=== PATIENT | male | born 1945 | race African-American/Black ===

== ENCOUNTER 2019-10-26 07:47 | Emergency (ER) | payer MEDICARE ==
[~2019-10-26] VITALS: Ht 180.3 cm; Wt 56.8 kg
[2019-10-26 07:52] VITALS: Ht 180.3 cm; Wt 56.8 kg
[2019-10-26] MEDS ORDERED: STERAPRED DS 1010 MG PO (09:03)
[2019-10-26 09:23] VITALS: BP 149/86
== END 2019-10-26 09:23 | disposition home or self-care (01) ==
LOC: D.ER 07:47
DX: G56.02 Carpal tunnel syndrome, left upper limb (principal)

== ENCOUNTER 2020-01-11 08:11 | Emergency (ER) | payer MEDICARE ==
[~2020-01-11] VITALS: Ht 180.3 cm; Wt 79.5 kg
[~2020-01-11 08:11] MED LIST: STERAPRED DS 1010 MG PO
[2020-01-11 08:16] VITALS: Ht 180.3 cm; Wt 79.5 kg
[2020-01-11 08:43] LABS: BACTERIA FEW /hpf (NEGATIVE); EPITHELIAL CELLS 0-5 /hpf (0-5); RED CELLS - URINE >50 /hpf (0-5)
[2020-01-11 08:52] LABS: BASOPHILS 0.2 % (0-2); EOSINOPHILS 1.1 % (0-7); HEMOGLOBIN 10.8 g/dL (13.5-17.5); IMMATURE GRANULOCYTES 0.2 % (0-5); LYMPHOCYTES 26.8 % (15-50); MCH 27.9 pg (26.0-34.0); MCHC 32.7 g/dL (31.0-37.0); MCV 85.3 fL (80.0-100.0); MEAN PLATELET VOLUME 9.5 fL (7.4-10.4); MONOCYTES 10.8 % (2-11); NEUTROPHILS 60.9 % (40-80); PLATELET COUNT 267 10x3/uL (130-400); RBC 3.87 10x6/uL (4.20-6.10); RDW 16.1 % (11.5-14.5); WBC 5.4 10x3/uL (4.8-10.8)
[2020-01-11 09:04] LABS: CALC OSMOLALITY 277 mosm/kg (275-300); CALCIUM 9.1 mg/dL (8.5-10.1); CARBON DIOXIDE 25.1 mmol/L (21.0-32.0); CHLORIDE - SERUM 105 mmol/L (98-107); GLUCOSE 124 mg/dL (74-106); POTASSIUM - SERUM 3.8 mmol/L (3.5-5.1); SODIUM 138 mmol/L (136-145); UREA NITROGEN 15 mg/dL (7-18); eGFR NON AFRICAN AMERICAN 78 mL/min (90-120)
[2020-01-11 09:09] LABS: ALBUMIN 3.1 g/dL (3.4-5.0); ALKALINE PHOSPHATASE 79 U/L (30-120); ALT (SGPT) 15 U/L (10-68); BILIRUBIN - TOTAL 0.35 mg/dL (0.2-1.3); PROTEIN - SERUM 7.6 g/dL (6.4-8.2)
[2020-01-11] MEDS ORDERED: MACROBID100 MG PO (09:51)
[2020-01-11] MEDS ORDERED: FLOMAX0.4 MG PO (09:51)
[2020-01-11 10:14] VITALS: BP 118/76
== END 2020-01-11 10:14 | disposition home or self-care (01) ==
LOC: D.ER 08:11
PROVIDERS: Family Medicine
DX: R33.9 Retention of urine, unspecified (principal); R31.9 Hematuria, unspecified

== ENCOUNTER 2020-01-12 20:07 | Emergency (ER) | payer MEDICARE ==
[~2020-01-12] VITALS: Ht 180.3 cm; Wt 59.1 kg
[~2020-01-12 20:07] MED LIST changes: +FLOMAX0.4 MG PO; +MACROBID100 MG PO
[2020-01-12 20:16] VITALS: Ht 180.3 cm; Wt 59.1 kg
[2020-01-12 21:57] LABS: BILIRUBIN NEGATIVE (NEGATIVE); GLUCOSE NEGATIVE (NEGATIVE); KETONE NEGATIVE (NEGATIVE); NITRITE NEGATIVE (NEGATIVE); UROBILINOGEN NORMAL (NORMAL)
[2020-01-12 21:58] LABS: BACTERIA MANY /hpf (NEGATIVE); RED CELLS - URINE >50 /hpf (0-5); WHITE CELLS - URINE 0-5 /hpf (NEGATIVE)
[2020-01-12 22:46] VITALS: BP 128/70
== END 2020-01-12 22:59 | disposition home or self-care (01) ==
LOC: D.ER 20:07
PROVIDERS: Family Medicine
DX: N40.1 Benign prostatic hyperplasia with lower urinary tract symptoms (principal); R33.8 Other retention of urine

== ENCOUNTER → 2020-01-26 10:27 | Outpatient (CLI) | payer MEDICARE ==
[2020-01-12 20:16] VITALS: BMI 18.1
== END | disposition home or self-care (01) ==
LOC: D.LAB 10:27
PROVIDERS: ATTEND Urology
DX: N40.0 Benign prostatic hyperplasia without lower urinary tract symptoms (principal)

== ENCOUNTER → 2020-02-05 07:59 | Outpatient (CLI) | payer MEDICARE ==
[2020-01-12 20:16] VITALS: BMI 18.1
== END | disposition home or self-care (01) ==
LOC: D.CT 07:59 → EDBD 09:00
PROVIDERS: ATTEND Urology
DX: R31.0 Gross hematuria (principal)

== ENCOUNTER 2020-03-02 11:25 | Emergency (ER) | payer MEDICARE ==
[~2020-03-02] VITALS: Ht 180.3 cm; Wt 63.6 kg
[2020-03-02 11:36] VITALS: Ht 180.3 cm; Wt 63.6 kg
[2020-03-02 12:17] LABS: ANION GAP 16.6 mmol/L (8-16); CALCIUM 9.2 mg/dL (8.5-10.1); CARBON DIOXIDE 24.5 mmol/L (21.0-32.0); CREATININE - SERUM 1.3 mg/dL (0.6-1.3); POTASSIUM - SERUM 4.1 mmol/L (3.5-5.1)
[2020-03-02 12:24] LABS: BASOPHILS 0.2 % (0-2); EOSINOPHILS 0.6 % (0-7); HEMATOCRIT 29.9 % (42.0-54.0); HEMOGLOBIN 8.9 g/dL (13.5-17.5); IMMATURE GRANULOCYTES 0.3 % (0-5); LYMPHOCYTES 13.2 % (15-50); MCH 24.1 pg (26.0-34.0); MCHC 29.8 g/dL (31.0-37.0); MEAN PLATELET VOLUME 8.8 fL (7.4-10.4); MONOCYTES 9.2 % (2-11); NEUTROPHILS 76.5 % (40-80); RBC 3.69 10x6/uL (4.20-6.10); RDW 17.1 % (11.5-14.5); WBC 10.3 10x3/uL (4.8-10.8)
[2020-03-02 12:57] LABS: BILIRUBIN NEGATIVE (NEGATIVE); GLUCOSE NEGATIVE (NEGATIVE); KETONE NEGATIVE (NEGATIVE); NITRITE NEGATIVE (NEGATIVE); UROBILINOGEN NORMAL (NORMAL)
[2020-03-02 12:58] LABS: BACTERIA FEW /hpf (NEGATIVE); EPITHELIAL CELLS RARE /hpf (0-5); RED CELLS - URINE >50 /hpf (0-5)
[2020-03-02 12:59] LABS: PLATELET COUNT 477 10x3/uL (130-400)
[2020-03-02 13:19] VITALS: BP 154/81
[2020-03-02 13:19] LABS: APTT 30.8 SECONDS (22.8-39.4); INR 1.03 (0.85-1.17); PROTIME 13.4 SECONDS (11.6-15.0)
== END 2020-03-02 13:20 | disposition home or self-care (01) ==
LOC: D.ER 11:25
PROVIDERS: Emergency Medicine
DX: R31.0 Gross hematuria (principal); D49.4 Neoplasm of unspecified behavior of bladder; N40.1 Benign prostatic hyperplasia with lower urinary tract symptoms; R33.8 Other retention of urine; C61 Malignant neoplasm of prostate; N39.0 Urinary tract infection, site not specified

== ENCOUNTER 2020-03-03 10:20 | Emergency (ER) | payer MEDICARE ==
[~2020-03-03] VITALS: Ht 180.3 cm; Wt 64.5 kg
[2020-03-03 10:23] VITALS: Ht 180.3 cm; Wt 64.5 kg
[2020-03-03 10:47] LABS: BASOPHILS 0.1 % (0-2); EOSINOPHILS 0 % (0-7); HEMATOCRIT 25.1 % (42.0-54.0); HEMOGLOBIN 7.6 g/dL (13.5-17.5); IMMATURE GRANULOCYTES 0.3 % (0-5); LYMPHOCYTES 9.5 % (15-50); MCH 24.1 pg (26.0-34.0); MCHC 30.3 g/dL (31.0-37.0); MCV 79.4 fL (80.0-100.0); MEAN PLATELET VOLUME 8.9 fL (7.4-10.4); MONOCYTES 5.8 % (2-11); NEUTROPHILS 84.3 % (40-80); RBC 3.16 10x6/uL (4.20-6.10); RDW 17.5 % (11.5-14.5); WBC 12.8 10x3/uL (4.8-10.8)
[2020-03-03 10:48] LABS: PLATELET COUNT 345 10x3/uL (130-400)
[2020-03-03 10:58] LABS: ANION GAP 19.8 mmol/L (8-16); APTT 27.5 SECONDS (22.8-39.4); CALCIUM 8.7 mg/dL (8.5-10.1); CARBON DIOXIDE 21.1 mmol/L (21.0-32.0); CREATININE - SERUM 1.3 mg/dL (0.6-1.3); INR 1.06 (0.85-1.17); PROTIME 13.7 SECONDS (11.6-15.0)
[2020-03-03 11:01] LABS: POTASSIUM - SERUM 4.9 mmol/L (3.5-5.1)
[2020-03-03 11:04] LABS: ALBUMIN 2.8 g/dL (3.4-5.0); BILIRUBIN - TOTAL 0.37 mg/dL (0.2-1.3); PROTEIN - SERUM 7.1 g/dL (6.4-8.2)
[2020-03-03 12:36] VITALS: BP 136/72
== END 2020-03-03 12:44 | disposition other institution (70) ==
LOC: D.ER 10:20
PROVIDERS: Family Medicine
DX: R31.9 Hematuria, unspecified (principal); D64.9 Anemia, unspecified; C67.9 Malignant neoplasm of bladder, unspecified; R53.1 Weakness

== ENCOUNTER 2020-03-10 03:13 | Emergency (ER) | payer MEDICARE ==
[2020-03-10 03:24] VITALS: Ht 180.3 cm
[2020-03-10 04:09] VITALS: BP 128/82
== END 2020-03-10 04:13 | disposition home or self-care (01) ==
LOC: EDBD 03:13 → D.ER 03:13
DX: T83.098A Other mechanical complication of other urinary catheter, initial encounter (principal); C67.9 Malignant neoplasm of bladder, unspecified